=== PATIENT | female | born 1930 | race Caucasian/White ===

== ENCOUNTER 2017-06-17 07:22 | Emergency (ER) | payer MEDICARE ==
[~2017-06-17] VITALS: Ht 165.1 cm; Wt 75.3 kg
[~2017-06-17 07:22] MED LIST: DIOVAN HCT 1601 EACH PO; PRAVASTATIN SOD40 MG PO; PRIMIDONE50 MG PO; TENORMIN 25MG T25 MG PO; Z.0.ACIPHEX20 MG PO; Z.0.ISOSORBIDE DINI3; Z.0.K DUR10 MEQ PO; Z.1.DIOVAN HCT 1601; [UNRECOGNIZED DRUG - OTHER] PO
[2017-06-17] MEDS ORDERED: SODIUM CHLORIDE 0.9% 1000ML 1,000 ML IV ONE (08:00)
[2017-06-17 08:44] LABS: BASOPHILS % 0.3 % (0.0-1.0); EOSINOPHILS % 0.2 % (0.0-6.0); HEMATOCRIT 34.5 % (34.2-44.1); HEMOGLOBIN 11.4 g/dL (12.0-16.0); LYMPHOCYTES # (AUTO) 0.8 (1.0-3.2); LYMPHOCYTES % 5.7 % (18.0-39.1); MEAN CORPUSCULAR HEMOGLOBIN 30.4 pg (28-32); MONOCYTES # (AUTO) 0.8 (0.2-0.8); MONOCYTES % 6.1 % (4.4-11.3); NEUTROPHILS # (AUTO) 11.9 (2.1-6.9); NEUTROPHILS % 87.3 % (38.7-80.0); PLATELET COUNT 194 x10e3/uL (140-360); RED BLOOD COUNT 3.75 x10e6/uL (3.6-5.1); RED CELL DISTRIBUTION WIDTH 13.7 % (11.7-14.4)
--- NOTE | 2017-06-17 08:56 | Diagnostic Imaging Report ---
PROCEDURE: Frontal and lateral views of the chest. COMPARISON: Chest 2 views 01/01/2016. INDICATIONS: SHORTNESS OF BREATH, CHILLS, BODY TREMORS FINDINGS: Lines/tubes: None. Lungs: Airspace opacification in the left lower lobe. No parenchymal mass. Pleura: There is no pleural effusion or pneumothorax. Heart and mediastinum: The heart and the mediastinum are normal. Atherosclerotic calcifications. Bones: No acute bony abnormality. Degenerative changes of the thoracic spine. IMPRESSION: Airspace opacification in the left lower lobe may represent atelectasis or developing pneumonia. Dictated by: Chaparro Crane M.D. on 06/17/2017 at 8:57 Electronically approved by: Chaparro Crane M.D. on 06/17/2017 at 8:57
[2017-06-17 09:02] LABS: ALANINE AMINOTRANSFERASE 13 IU/L (0-55); ALBUMIN 3.2 g/dL (3.5-5.0); ALBUMIN/GLOBULIN RATIO 0.9 (0.8-2.0); ALKALINE PHOSPHATASE 80 IU/L (40-150); ANION GAP 11.2 mmol/L (8-16); BLOOD UREA NITROGEN 16 mg/dL (7-26); BUN/CREATININE RATIO 18 (6-25); CALCIUM 8.7 mg/dL (8.4-10.2); CARBON DIOXIDE 25 mmol/L (22-29); CHLORIDE 99 mmol/L (98-107); CREATININE, SERUM 0.87 mg/dL (0.57-1.11); EST GLOMERULAR FILTRATION RATE > 60 ML/MIN (60-); GLUCOSE 117 mg/dL (74-118); MAGNESIUM 1.8 MG/DL (1.3-2.1); POTASSIUM 4.2 mmol/L (3.5-5.1); SODIUM 131 mmol/L (136-145)
[2017-06-17 09:14] LABS: BILIRUBIN,URINE NEGATIVE (NEGATIVE); KETONES,URINE NEGATIVE (NEGATIVE); LEUKOCYTE ESTERASE ,URINE 1+ (NEGATIVE); PROTEIN,URINE DIPSTICK NEGATIVE (NEGATIVE); URINE UROBILINOGEN 0.2 mg/dL (0.2 - 1)
[2017-06-17 09:15] LABS: CLARITY,URINE CLOUDY (CLEAR); COLOR,URINE YELLOW (YELLOW); NITRITE,URINE POSITIVE (NEGATIVE)
[2017-06-17 09:22] LABS: BACTERIA,URINE MANY /HPF; EPITHELIAL CELLS,URINE RARE /LPF; WBC,URINE (MAN) >50 /HPF (0-5)
[2017-06-17 09:22] LABS: THYROID STIMULATING HORMONE 0.717 uIU/mL (0.350-4.940)
[2017-06-17] MEDS ORDERED: CEFTRIAXONE SOD 1 GM VIAL IV ONE (09:30)
[2017-06-17] MEDS ORDERED: AZITHROMYCIN 500MG/NS 250 ML 250 ML IV ONE (09:30)
[2017-06-17] MEDS ORDERED: ACIPHEX20 MG PO (09:43)
[2017-06-17] MEDS ORDERED: PRIMIDONE50 MG PO (09:43)
[2017-06-17] MEDS ORDERED: ACETAMINOPHEN 325 MG TAB PO ONE (11:00)
[2017-06-17 12:26] VITALS: BP 120/50
== END 2017-06-17 12:43 | disposition home or self-care (01) ==
LOC: ER 07:22
DX: R06.00 Dyspnea, unspecified (principal); R53.1 Weakness; J18.9 Pneumonia, unspecified organism; N39.0 Urinary tract infection, site not specified
CPT/HCPCS: 36415; 71046; 80053; 81001; 83735; 84443; 85025; 87040; 87086; 87186; 93005; 99284; J0456; J0696; J7030

== ENCOUNTER 2018-05-05 09:24 | Emergency (ER) | payer MEDICARE ==
[~2018-05-05] VITALS: Ht 160 cm; Wt 75.3 kg
[~2018-05-05 09:24] MED LIST changes: +ACIPHEX20 MG PO
--- OUTSIDE RECORDS SUMMARY | 2018-05-05 09:27 | XMS REPORT ---
Author Author [facility] Address Unknown Phone Unavailable Care Team Providers Care Care Administrative Tech Name Role Phone Naomi VALLE Unavailable Unavailable Problems This patient has no known problems. Allergies, Adverse Reactions, Alerts This patient has no known allergies or adverse reactions. Medications This patient has no known medications. Results Test Description Test Time Test Comments Text Results Atomic Results Result Comments CHEST 2 VIEWS [place] [address] Patient Name: NASEEM HESS MR #: [id number] : 1930 Age/Sex: 87/F Req #: [id number] Adm Physician: Ordered by: OLI VALLE MD Report #: [id number] Location: ER Room/Bed: Procedure: [id number] DX/CHEST 2 VIEWS Exam Date: 06/17/17 Exam Time: 0815 REPORT STATUS: Signed PROCEDURE: Frontal and lateral views of the chest. COMPARISON: Chest 2 views 01/01/2016. INDICATIONS: SHORTNESS OF BREATH, CHILLS, BODY TREMORS FINDINGS: Lines/tubes: None. Lungs: Airspace opacification in the left lower lobe. No parenchymal mass. Pleura: There is no pleural effusion or pneumothorax. Heart and mediastinum: The heart and the mediastinum are normal. Atherosclerotic calcifications. Bones: No acute bony abnormality. Degenerative changes of the thoracic spine. IMPRESSION: Airspace opacification in the left lower lobe may represent atelectasis or developing pneumonia. Dictated by: Damari Washington M.D. on 06/17/2017 at 8:57 Electronically approved by: Damari Washington M.D. on 06/17/2017 at 8:57 Dictated By: DAMARI WASHINGTON MD 6 Transcribed By: HONEY on 06/17/17856 COPY TO: OLI VALLE MD
[2018-05-05] MEDS ORDERED: DIPHTH/TETANUS/ACEL. PERTUSSIS 0.5 ML SYR IM ONE (10:00)
--- NOTE | 2018-05-05 10:28 | Diagnostic Imaging Report ---
Exam: Head CT without contrast History: Trauma, fall Comparison studies: None Technique: Axial images were obtained from the skull base to the vertex. Coronal and sagittal images reconstructed from the axial data. Dose modulation, iterative reconstruction, and/or weight based adjustment of the mA/kV was utilized to reduce the radiation dose to as low as reasonably achievable. Radiation dose: Total DLP: 832 mGy*cm. Estimated effective dose: DLP x 0.015 Intravenous contrast: None Findings: Scalp: No abnormalities. Bones: No fractures or destructive lytic or blastic lesions. Nonspecific, nonaggressive-appearing 10 mm lytic lesion along the left paramedian lambdoid suture. Brain sulci: Mildly prominent. Ventricles: Mild compensatory dilatation. No hydrocephalus. Extra-axial spaces: No masses, no fluid collection. Parenchyma: No mass, acute hemorrhage or acute or chronic cortical vascular insults. A few scattered hypodensities in the supratentorial white matter are nonspecific but most compatible with chronic microvascular ischemic changes. Sellar/suprasellar region: No abnormalities. Craniocervical junction: Patent foramen magnum. No Chiari one malformation. Incidental findings: Atherosclerotic calcifications in the carotid siphons and intradural vertebral arteries. Right lens replacement and probable left orbital prosthesis which could be correlated with ophthalmologic history (cannot adequately evaluate the orbits due to motion artifacts). IMPRESSION: No acute abnormalities. Chronic findings: 1. Mild generalized brain volume loss. 2. Mild microvascular ischemic changes. Signed by: Dr. Pool Johnson M.D. on 05/05/2018 10:25 AM
[2018-05-05] MEDS ORDERED: LIDOCAINE 2%/ EPINEPHRINE 20ML MDV INJ ONE (10:45)
[2018-05-05 11:10] VITALS: BP 186/76
== END 2018-05-05 11:39 | disposition home or self-care (01) ==
LOC: ER 09:24
DX: S01.81XA Laceration without foreign body of other part of head, initial encounter (principal); W18.09XA Striking against other object with subsequent fall, initial encounter; Y93.84 Activity, sleeping; Y92.003 Bedroom of unspecified non-institutional (private) residence as the place of occurrence of the external cause
CPT/HCPCS: 12052; 70450; 99283; J2001